=== PATIENT | female | born 1945 | race Caucasian/White ===

== ENCOUNTER → 2016-08-12 | Outpatient (CLI) | payer OTHER, MEDICARE ==
[~2016-08-12] MED LIST: AMOX500C3 PO; AMOX875T PO; ASPI325T45 PO; ASPI81TA28 PO; ATOR80TA PO; BUPRTAB51 PO; CEPH500C PO; CEPH500C2 PO; CHOL1000 PO; CHOL100010 PO; CITA20TA4 PO; CLOP1TAB15 PO; COLL250O; CRG25 PO; CYAN100020 PO; FERR1TAB13 PO; FURO40TA3 PO; FURO80TA63 PO; GLC/500 PO; HYZ/10015 PO; INSDGI SC; INSDGIPEN SC; LOSA100T26 PO; LYR100 PO; MORP1TAB13 PO; MRPSR15 PO; NITR0.2D TD; NRN800 PO; NVLGI SC; NVLGI/PEN SC; OXY/15 PO; PANT40TA PO; PREG1CAP28 PO; RXC5 PO; SNTONWC TOP; SPR25 PO
[2016-08-12 14:59] LABS: BASO % 0.4 %; BASO ABS # 0.04 K/uL (0-0.2); COMPLETE YES; EOS % 1.7 %; HEMATOCRIT 39.7 % (37-47); IG% 0.3 %; LYMPH % 30.2 %; LYMPH ABS # 3.07 K/uL (1.2-3.4); MEAN CELL VOLUME 79.1 fL (80-100); MEAN CORPUSCULAR HEMOGLOBIN 26.9 pg (25-34); MEAN PLATELET VOLUME 10.8 fL (7.4-10.4); MONO % 6.5 %; NEUT % 60.9 %; PLATELET COUNT 352 K/uL (130-400); RED BLOOD COUNT 5.02 M/uL (4.2-5.4); WHITE BLOOD COUNT 10.15 K/uL (4.8-10.8)
[2016-08-12 15:09] LABS: BLOOD UREA NITROGEN 16 mg/dl (7-18); BUN/CREATININE RATIO 18.3 (10-20); CALCIUM 10.3 mg/dl (8.5-10.1); CARBON DIOXIDE 30 mmol/L (21-32); CHLORIDE 96 mmol/L (98-107); CREATININE 0.89 mg/dl (0.60-1.20); GLUCOSE 293 mg/dl (70-99); POTASSIUM 3.9 mmol/L (3.5-5.1); SODIUM 135 mmol/L (136-145)
== END | disposition home or self-care (01) ==
LOC: C.LABSPEC 14:48
PROVIDERS: ATTEND Family Medicine
DX: N23 Unspecified renal colic (principal)

== ENCOUNTER 2017-02-04 11:11 | Emergency (ER) | payer OTHER, MEDICARE ==
[~2017-02-04 11:11] MED LIST changes: -AMOX500C3 PO; -ASPI325T45 PO; -CEPH500C PO; -CEPH500C2 PO; -CHOL1000 PO; -FERR1TAB13 PO; -FURO40TA3 PO; -HYZ/10015 PO; -INSDGIPEN SC; -LYR100 PO; -MORP1TAB13 PO; -NVLGI/PEN SC; -OXY/15 PO
[2017-02-04 11:18] VITALS: TEMP 37; Ht 157.5 cm
[2017-02-04] MEDS ORDERED: SODIUM CHLORIDE 0.9% 1000ML 1,000 ML IV STA (11:33)
[2017-02-04] MEDS ORDERED: MoRPHine SULFATE 4 MG/ML 1 ML CARP\\VIAL IV STA (11:33)
[2017-02-04] MEDS ORDERED: FURO40TA3 PO (11:43)
[2017-02-04] MEDS ORDERED: ASPI325T45 PO (11:43)
[2017-02-04] MEDS ORDERED: HYZ/10015 PO (11:43)
[2017-02-04] MEDS ORDERED: FERR1TAB13 PO (11:43)
[2017-02-04] MEDS ORDERED: NVLGI/PEN SC (11:43)
[2017-02-04] MEDS ORDERED: LYR100 PO (11:43)
[2017-02-04] MEDS ORDERED: INSDGIPEN SC (11:43)
[2017-02-04] MEDS ORDERED: CHOL1000 PO (11:43)
[2017-02-04] MEDS ORDERED: MORP1TAB13 PO (11:43)
[2017-02-04] MEDS ORDERED: OXY/15 PO (11:43)
[2017-02-04 12:32] LABS: URINE APPEARANCE CLEAR (CLEAR); URINE BILIRUBIN NEG (NEG); URINE COLOR YELLOW; URINE NITRITE NEG (NEG); URINE PH 8.5 (4.5-7.5); URINE SPECIFIC GRAVITY 1.016 (1.000-1.030); UROBILINOGEN NEG (NEG)
--- NOTE | 2017-02-04 12:33 | DIAGNOSTIC IMAGING REPORT ---
CHEST ONE VIEW PORTABLE HISTORY: 71 years Female Evaluate Fever/Sepsis COMPARISON: None available TECHNIQUE: Portable AP upright view of the chest FINDINGS: Cardiac silhouette is enlarged. There is mild right hemidiaphragmatic elevation. Lungs are mildly hypoinflated without pneumothorax, pleural effusion or focal airspace consolidation. Technique and body habitus however does mildly limit the study. Degenerative changes are seen throughout the spine. Bones appear grossly intact. IMPRESSION: Right hemidiaphragmatic elevation without acute cardiopulmonary process identified. The exam however is mildly limited secondary to technique and body habitus. The above report was generated using voice recognition software. It may contain grammatical, syntax or spelling errors. Electronically signed by: Carson Spears M.D. 02/04/2017 12:31 PM Dictated Date/Time: 02/04/2017 12:30 PM
[2017-02-04 12:42] LABS: BASO % 0.2 %; BASO ABS # 0.02 K/uL (0-0.2); COMPLETE YES; EOS % 0.7 %; HEMATOCRIT 37.8 % (37-47); IG% 0.2 %; LYMPH % 23.8 %; LYMPH ABS # 2.29 K/uL (1.2-3.4); MEAN CELL VOLUME 77.3 fL (80-100); MEAN CORPUSCULAR HEMOGLOBIN 25.8 pg (25-34); MEAN CORPUSCULAR HGB CONC 33.3 g/dl (32-36); MONO % 7.7 %; NEUT % 67.4 %; PLATELET COUNT 337 K/uL (130-400); RED BLOOD COUNT 4.89 M/uL (4.2-5.4); WHITE BLOOD COUNT 9.62 K/uL (4.8-10.8)
[2017-02-04 12:46] LABS: MANUAL MICROSCOPIC REQUIRED? NO; REVIEW REQ? NO
[2017-02-04 12:58] LABS: PROTHROMBIN TIME (PATIENT) 10.7 SECONDS (9.0-12.0)
--- NOTE | 2017-02-04 13:03 | DIAGNOSTIC IMAGING REPORT ---
CT SCAN OF THE ABDOMEN AND PELVIS WITHOUT CONTRAST CLINICAL HISTORY: Diffuse abdominal pain. COMPARISON STUDY: No previous studies for comparison. TECHNIQUE: CT scan of the abdomen and pelvis was performed from the lung bases to the proximal femurs. Images are reviewed in the axial, sagittal, and coronal planes. IV contrast was not administered for this examination. A dose lowering technique was used consistent with a principles of ALARA CT DOSE: 988.49 mGycm FINDINGS: Lower chest: There are mild basilar atelectatic changes Liver: The unenhanced liver is normal in size, contour, and attenuation. There is no intrahepatic biliary ductal dilatation. Gallbladder: Unremarkable. Spleen: Normal in size and attenuation. Pancreas: There is pancreatic body and tail atrophy. There is slight indistinctness of the pancreatic head. Correlation with appropriate biochemical markers is recommended to exclude pancreatitis. Adrenal glands: Unremarkable. Kidneys: No renal, ureteral, or bladder calculi are visualized. Bowel: There are no transition zones indicate bowel obstruction. There is colonic diverticulosis. There are no acute peridiverticular inflammatory changes present. There is no evidence of acute appendicitis. Peritoneum: There is no intraperitoneal free air or abdominal ascites. Vasculature: The abdominal aorta is normal in course and caliber. There are diffuse atheromatous changes present. Adenopathy: None. Pelvic viscera: The uterus appears surgically absent Skeletal structures: No destructive osseous lesions are seen. IMPRESSION: 1. Study limited secondary to the lack of intravenous and oral contrast 2. No renal, ureteral, or bladder calculi identified 3. Diverticulosis. No evidence of acute diverticulitis 4. No evidence of acute appendicitis 5. Pancreatic atrophy. Indistinctness the pancreatic head. Correlation with appropriate biochemical markers is recommended to exclude pancreatitis Electronically signed by: Brent Funez M.D. 02/04/2017 1:01 PM Dictated Date/Time: 02/04/2017 12:56 PM
[2017-02-04 13:11] LABS: ALT/SGPT 19 U/L (12-78); AST/SGOT 11 U/L (15-37); BLOOD UREA NITROGEN 15 mg/dl (7-18); BUN/CREATININE RATIO 19.6 (10-20); CALCIUM 10.5 mg/dl (8.5-10.1); CARBON DIOXIDE 32 mmol/L (21-32); CHLORIDE 97 mmol/L (98-107); CREATININE 0.77 mg/dl (0.60-1.20); GLUCOSE 183 mg/dl (70-99); POTASSIUM 3.8 mmol/L (3.5-5.1); SODIUM 134 mmol/L (136-145)
[2017-02-04 13:21] LABS: ALKALINE PHOSPHATASE 61 U/L (45-117); CKMB/CK RATIO 2.3 (0-3.0)
--- NOTE | 2017-02-04 13:29 | EMERGENCY ROOM VISIT NOTE ---
History Report prepared by Corina: Samuel Hayes Under the Supervision of: Dr. Javed Michele D.O. First contact with patient: 11:28 Chief Complaint: PAIN (GENERALIZED) Stated Complaint: PAIN ALL OVER History of Present Illness The patient is a 71 year old female who presents to the Emergency Room with complaints of intermittent generalized body pain beginning a week ago. She states that the majority of her pain is in her abdomen and ribs. She has a history of multiple heart attacks and states that her symptoms are usually not typical at the time of diagnosis. The patient states that her pain has been occurring more frequently recently. Nothing worsens her pain. She rates her pain as a 10/10 in severity. The patient has been taking Oxycodone and Morphine at home for pain control but states that they have not helped her symptoms. Source of History: patient Onset: 1 week ago Position: other (generalized) Symptom Intensity: 10/10 Timing: intermittent Modifying Factors (Worsening): other (none) Review of Systems See HPI for pertinent positives & negatives. A total of 10 systems reviewed and were otherwise negative. Past Medical & Surgical Medical Problems: (1) Cellulitis of heel, right (2) Chronic ulcer of right heel (3) Diabetes (4) Neuropathy (5) PAD (peripheral artery disease) Family History Diabetes mellitus Hypertension Social History Smoking Status: Former Smoker Drug Use: none Marital Status: Occupation Status: retired, disabled Current/Historical Medications Scheduled Aspirin (Aspirin), 325 MG PO DAILY Atorvastatin Calcium (Lipitor), 80 MG PO QPM Carvedilol (Carvedilol), 25 MG PO BID Cholecalciferol (Vitamin D3), 1,000 UNITS PO DAILY Citalopram Hydrobromide (Citalopram Hydrobromide), 1 TAB PO DAILY Clopidogrel (Plavix), 75 MG PO DAILY Cyanocobalamin (Vitamin B12), 1 TAB PO DAILY Ferrous Sulfate (Kp Ferrous Sulfate), 325 MG PO BID Furosemide (Lasix), 40 MG PO DAILY Gabapentin (Gabapentin), 800 MG PO BID Hctz/Losartan (Hyzaar 25MG/100MG), 1 TAB PO DAILY Insulin Aspart (Novolog Flexpen), UNITS SC SLIDING SCALE Insulin Glargine (Lantus Solostar), 40 UNITS SC BID Metformin Hcl (Glucophage), 1,000 MG PO BID Morphine Sulfate (Morphine Sulfate Er), 60 MG PO BID Pantoprazole Sodium (Protonix), 40 MG PO HS Pregabalin (Lyrica), 100 MG PO BID Spironolactone (Spironolactone), 25 MG PO DAILY Scheduled PRN Oxycodone Hcl (Oxycodone Hcl), 15 MG PO Q4H PRN for Pain Allergies Coded Allergies: Iodinated Diagnostic Agents (Verified Allergy, Severe, ANAPHYLAXIS, ) Levalbuterol Hydrochloride (Verified Allergy, Severe, ANAPHYLAXIS, 03/12/16 ) NSAIDs (Unverified Allergy, Unknown, unknown, 03/12/16) Alprazolam (Verified Adverse Reaction, Unknown, unknown, 03/12/16) Physical Exam Vital Signs Date Time Temp Pulse Resp B/P (MAP) Pulse Ox O2 Delivery O2 Flow Rate FiO2 02/04/17 13:00 87 15 125/73 94 Room Air 02/04/17 12:59 86 02/04/17 11:18 37.0 92 20 139/83 93 Room Air Physical Exam CONSTITUTIONAL/VITAL SIGNS: Reviewed / noted above. GENERAL: Non-toxic in appearance. INTEGUMENTARY: Warm, dry, and [place]. HEAD: Normocephalic. EYES: without scleral icterus or trauma. ENT/OROPHARYNX: clear and moist. LYMPHADENOPATHY/NECK: Is supple without lymphadenopathy or meningismus. RESPIRATORY: Lungs clear and equal. CARDIOVASCULAR: Regular rate and rhythm. GI/ABDOMEN: Soft with diffuse abdominal tenderness. No organomegaly or pulsatile mass. No rebound or guarding. Normal bowel sounds. EXTREMITIES: Warm and well perfused. BACK: No CVA tenderness. NEUROLOGICAL: Intact without focal deficits. PSYCHIATRIC: normal affect. MUSCULOSKELETAL: Normally developed with good muscle tone. Medical Decision & Procedures ER Provider Diagnostic Interpretation: Radiology results as stated below per my review and radiologist interpretation: CHEST ONE VIEW PORTABLE FINDINGS: Cardiac silhouette is enlarged. There is mild right hemidiaphragmatic elevation. Lungs are mildly hypoinflated without pneumothorax, pleural effusion or focal airspace consolidation. Technique and body habitus however does mildly limit the study. Degenerative changes are seen throughout the spine. Bones appear grossly intact. IMPRESSION: Right hemidiaphragmatic elevation without acute cardiopulmonary process identified. The exam however is mildly limited secondary to technique and body habitus. The above report was generated using voice recognition software. It may contain grammatical, syntax or spelling errors. Electronically signed by: Carson Spears M.D. CT SCAN OF THE ABDOMEN AND PELVIS WITHOUT CONTRAST FINDINGS: Lower chest: There are mild basilar atelectatic changes Liver: The unenhanced liver is normal in size, contour, and attenuation. There is no intrahepatic biliary ductal dilatation. Gallbladder: Unremarkable. Spleen: Normal in size and attenuation. Pancreas: There is pancreatic body and tail atrophy. There is slight indistinctness of the pancreatic head. Correlation with appropriate biochemical markers is recommended to exclude pancreatitis. Adrenal glands: Unremarkable. Kidneys: No renal, ureteral, or bladder calculi are visualized. Bowel: There are no transition zones indicate bowel obstruction. There is colonic diverticulosis. There are no acute peridiverticular inflammatory changes present. There is no evidence of acute appendicitis. Peritoneum: There is no intraperitoneal free air or abdominal ascites. Vasculature: The abdominal aorta is normal in course and caliber. There are diffuse atheromatous changes present. Adenopathy: None. Pelvic viscera: The uterus appears surgically absent Skeletal structures: No destructive osseous lesions are seen. IMPRESSION: 1. Study limited secondary to the lack of intravenous and oral contrast 2. No renal, ureteral, or bladder calculi identified 3. Diverticulosis. No evidence of acute diverticulitis 4. No evidence of acute appendicitis 5. Pancreatic atrophy. Indistinctness the pancreatic head. Correlation with appropriate biochemical markers is recommended to exclude pancreatitis Electronically signed by: Brent Funez M.D. Laboratory Results 02/04/17 12:20 Red Blood Count 4.89, Mean Corpuscular Volume 77.3, Mean Corpuscular Hemoglobin 25.8, Mean Corpuscular Hemoglobin Concent 33.3, Mean Platelet Volume 11.0, Neutrophils (%) (Auto) 67.4, Lymphocytes (%) (Auto) 23.8, Monocytes (%) (Auto) 7.7, Eosinophils (%) (Auto) 0.7, Basophils (%) (Auto) 0.2, Neutrophils # (Auto) 6.48, Lymphocytes # (Auto) 2.29, Monocytes # (Auto) 0.74, Eosinophils # (Auto) 0.07, Basophils # (Auto) 0.02 02/04/17 12:20 Test 02/04/17 12:05 02/04/17 12:20 Urine Color YELLOW Urine Appearance CLEAR (CLEAR) Urine pH 8.5 (4.5-7.5) Urine Specific [place] 1.016 (1.000-1.030) Urine Protein NEG (NEG) Urine Glucose (UA) NEG (NEG) Urine Ketones NEG (NEG) Urine Occult Blood NEG (NEG) Urine Nitrite NEG (NEG) Urine Bilirubin NEG (NEG) Urine Urobilinogen NEG (NEG) Urine Leukocyte Esterase NEG (NEG) White Blood Count 9.62 K/uL (4.8-10.8) Red Blood Count 4.89 M/uL (4.2-5.4) Hemoglobin 12.6 g/dL (12.0-16.0) Hematocrit 37.8 % (37-47) Mean Corpuscular Volume 77.3 fL (80-100) Mean Corpuscular Hemoglobin 25.8 pg (25-34) Mean Corpuscular Hemoglobin Concent 33.3 g/dl (32-36) Platelet Count 337 K/uL (130-400) Mean Platelet Volume 11.0 fL (7.4-10.4) Neutrophils (%) (Auto) 67.4 % Lymphocytes (%) (Auto) 23.8 % Monocytes (%) (Auto) 7.7 % Eosinophils (%) (Auto) 0.7 % Basophils (%) (Auto) 0.2 % Neutrophils # (Auto) 6.48 K/uL (1.4-6.5) Lymphocytes # (Auto) 2.29 K/uL (1.2-3.4) Monocytes # (Auto) 0.74 K/uL (0.11-0.59) Eosinophils # (Auto) 0.07 K/uL (0-0.5) Basophils # (Auto) 0.02 K/uL (0-0.2) RDW Standard Deviation 39.8 fL (36.4-46.3) RDW Coefficient of Variation 13.9 % (11.5-14.5) Immature Granulocyte % (Auto) 0.2 % Immature Granulocyte # (Auto) 0.02 K/uL (0.00-0.02) Prothrombin Time 10.7 SECONDS (9.0-12.0) Prothromb Time International Ratio 1.0 (0.9-1.1) Activated Partial Thromboplast Time 26.6 SECONDS (21.0-31.0) Partial Thromboplastin Ratio 1.0 Anion Gap 5.0 mmol/L (3-11) Estimated GFR () 90.7 Estimated GFR (Non- 78.2 BUN/Creatinine Ratio 19.6 (10-20) Calcium Level 10.5 mg/dl (8.5-10.1) Total Bilirubin 0.3 mg/dl (0.2-1) Direct Bilirubin 0.1 mg/dl (0-0.2) Aspartate Amino Transf (AST/SGOT) 11 U/L (15-37) Alanine Aminotransferase (ALT/SGPT) 19 U/L (12-78) Alkaline Phosphatase 61 U/L (45-117) Total Creatine Kinase 78 U/L (26-192) Creatine Kinase MB 1.8 ng/ml (0.5-3.6) Creatine Kinase MB Ratio 2.3 (0-3.0) Troponin I < 0.015 ng/ml (0-0.045) Total Protein 7.5 gm/dl (6.4-8.2) Albumin 3.3 gm/dl (3.4-5.0) Lipase 118 U/L (73-393) Thyroid Stimulating Hormone (TSH) 3.160 uIu/ml (0.300-4.500) Laboratory results as stated above per my review. Medications Administered Medications (Trade) Dose Ordered Sig/Margaret Route Start Time Stop Time Status Last Admin Dose Admin Morphine Sulfate (MoRPHine SULFATE INJ) 4 mg NOW STAT IV 02/04/17 11:33 02/04/17 11:35 DC 02/04/17 12:22 4 MG Sodium Chloride 1,000 ml @ 999 mls/hr Q1H1M STAT IV 02/04/17 11:33 02/04/17 12:33 DC 02/04/17 12:22 999 MLS/HR ECG Indication: abdominal pain Rate (beats per minute): 89 Rhythm: normal sinus Findings: RBBB, no acute ischemic change, no ectopy Comparison ECG Date: Jul 25, 2015 Change: no significant change ED Course 1130: Previous medical records were reviewed. The patient was evaluated in room B3B. A complete history and physical examination was performed. 1133: Ordered Sodium Chloride 1000 ml @ 999 mls/hr IV, Morphine Sulfate 4 mg IV. 1330: On reevaluation, the patient is resting comfortably. I discussed the results and findings with the patient. She verbalized agreement of the treatment plan. She was discharged home. Medical Decision Differential diagnosis: Etiologies such as appendicitis, diverticulitis, PUD, biliary pathology, UTI, pancreatitis, obstruction, mesenteric ischemia, aortic pathology, infections, inflammatory bowel disease, renal colic, as well as others were entertained. This is a 71-year-old female who presents to the ED with a chief complaint of pain in her chest and abdomen. She reports diffuse abdominal pain as well as diffuse thorax pain that has been off and on for the past week and worsening or becoming more steady. Her vital signs are normal. Physical exam did not reveal any significant abnormalities other than some mild diffuse abdominal tenderness. Twelve-lead EKG reveals a normal sinus rhythm with right bundle branch block. No cerumen change from previous. CBC is normal. Glucose was 183. Urine did not show infection. A CT scan of the abdomen and pelvis as well as a chest x-ray did not show acute process. Lipase is normal, LFTs were normal, troponin is negative. TSH was normal. The patient was told results the test. He is felt to be stable for discharge and outpatient follow-up. The patient was treated with IV morphine as well as IV fluids during her ED stay. Medication Reconcilliation Current Medication List: was personally reviewed by me Blood Pressure Screening Patient's blood pressure: Elevated blood pressure Blood pressure disposition: Elevated BP felt to be situational Impression Primary Impression: Abdominal pain Additional Impression: Chest wall pain Scribe Attestation The scribe's documentation has been prepared under my direction and personally reviewed by me in its entirety. I confirm that the note above accurately reflects all work, treatment, procedures, and medical decision making performed by me. Departure Information Dispostion Home / Self-Care Referrals Brittney Narayan DO (PCP) Patient Instructions My [facility] Additional Instructions The cause of your symptoms were no discovered during you ED visit. Follow-up with your doctor for further care and evaluation in 1-2 days. Return to the emergency department for worsening or new symptoms or any concerns. You have been examined and treated today on an emergency basis only. This is not a substitute for, or an effort to provide, complete comprehensive medical care. It is impossible to recognize and treat all injuries or illnesses in a single emergency department visit. It is therefore important that you follow up closely with your doctor. Call as soon as possible for an appointment. Problem Qualifiers
[2017-02-04 14:23] VITALS: BP 121/69; PULSE 86; O2SAT 91
[2017-02-10] MEDS ORDERED: CEPH500C PO (15:28)
[2017-04-07] MEDS ORDERED: CEPH500C2 PO (15:36)
== END 2017-02-04 14:24 | disposition home or self-care (01) ==
LOC: C.EDB 11:13
DX: R10.9 Unspecified abdominal pain (principal); R07.89 Other chest pain; I25.2 Old myocardial infarction; Z79.899 Other long term (current) drug therapy; E11.43 Type 2 diabetes mellitus with diabetic autonomic (poly)neuropathy; I73.9 Peripheral vascular disease, unspecified; Z83.3 Family history of diabetes mellitus; Z82.49 Family history of ischemic heart disease and other diseases of the circulatory system; Z87.891 Personal history of nicotine dependence; Z79.82 Long term (current) use of aspirin; Z79.01 Long term (current) use of anticoagulants; Z79.4 Long term (current) use of insulin

== ENCOUNTER → 2017-02-10 | Outpatient (CLI) | payer OTHER, MEDICARE ==
[~2017-02-10] MED LIST changes: -AMOX875T PO; +ASPI325T45 PO; -ASPI81TA28 PO; -BUPRTAB51 PO; +CEPH500C PO; +CEPH500C2 PO; +CHOL1000 PO; -CHOL100010 PO; -COLL250O; +FERR1TAB13 PO; +FURO40TA3 PO; -FURO80TA63 PO; +HYZ/10015 PO; -INSDGI SC; +INSDGIPEN SC; -LOSA100T26 PO; +LYR100 PO; +MORP1TAB13 PO; -MRPSR15 PO; -NITR0.2D TD; -NVLGI SC; +NVLGI/PEN SC; +OXY/15 PO; -PREG1CAP28 PO; -RXC5 PO; -SNTONWC TOP
--- NOTE | 2017-02-10 16:42 | DIAGNOSTIC IMAGING REPORT ---
RIGHT LOWER EXTREMITY WITHOUT CLINICAL HISTORY: 71 years-old Female presenting with R LEG REST PAIN, HX OF STENT, OPEN WOUND R HEEL. TECHNIQUE: Multidetector CT of the right foot was performed without the use of intravenous contrast. IV contrast: None. A dose lowering technique was used consistent with the principles of ALARA (as low as reasonably achievable). COMPARISON: None. CT DOSE (mGy.cm): The estimated cumulative dose is 272.68 mGy.cm. FINDINGS: Advertising Inserter topogram: Unremarkable. Diffuse subcutaneous edema. Skin thickening most pronounced along the dorsum of the foot. An open wound is noted at the heel, which does not extend all the way to the subjacent calcaneus. Subjacent to this no significant osteolysis or erosive change allowing for the severe degree of osteopenia. No focal fluid collection. Degenerative changes and osteopenia noted diffusely. Degenerative changes at the calcaneus at the level of the insertion of the Achilles tendon and plantar fascia. No malalignment. Evaluation for fracture limited due to osteopenia. Fatty atrophy of the muscles of the foot diffusely, which is most apparent in the flexor compartment. Atherosclerosis. IMPRESSION: 1. Open wound at the right heel without CT evidence of osteomyelitis allowing for the severe degree of osteopenia. No soft tissue fluid collection to suggest abscess. If there is continuing clinical concern for osteomyelitis, MRI may better characterize bony changes given such severe osteopenia. Electronically signed by: Keagan Schneider M.D. 02/10/2017 4:41 PM Dictated Date/Time: 02/10/2017 4:30 PM
--- NOTE | 2017-02-10 16:43 | DIAGNOSTIC IMAGING REPORT ---
ULTRASOUND RIGHT LOWER EXTREMITY ARTERIAL CLINICAL HISTORY: Right leg pain. History of stent. Open wound in the right lower extremity. COMPARISON STUDY: No priors. TECHNIQUE: Real-time, grayscale, and color Doppler sonography of the arteries of the right lower extremity is performed from the inguinal crease to the foot. The patient declined ankle-brachial index assessment. The examination is degraded by large body habitus. FINDINGS: There is atherosclerotic plaque and irregularity seen throughout the arteries of the right lower extremity. There are triphasic waveforms in the right common femoral artery with velocities measuring up to 98 cm/s. The profunda femoris artery is patent with velocities measuring up to 79 cm/s. There are biphasic waveforms seen throughout the superficial femoral artery. Velocities proximally measure up to 92 cm/s, velocities in the midportion measure up to 97 cm/s, and velocities distally measure up to 64 cm/s. There are monophasic to biphasic waveforms seen within the popliteal artery. There is diminished flow suggested, and velocities in the popliteal artery measure up to 34 cm/s. There is three-vessel runoff to the foot. There is diminished flow with monophasic waveforms seen in the calf vessels. Velocities in the posterior tibial artery measure up to 41 cm/s, velocities in the peroneal artery measure up to 33 cm/s, and velocities in the anterior tibial artery measure up to 47 cm/s. The dorsalis pedis artery is patent with monophasic waveforms. Velocities in the dorsalis pedis artery measure up to 21 cm/s. IMPRESSION: 1. Atherosclerotic plaque with evidence of peripheral vascular disease as above. 2. No focal vessel cut off or high-grade stenosis is identified. 3. The patient's reported stent was not visualized. 4. The patient declined ankle-brachial index assessment. Dictated: 02/10/2017 4:15 PM Transcribed: 02/10/2017 4:43 PM [place] Electronically signed by: Augusto Goldstein M.D. 02/10/2017 4:43 PM Dictated Date/Time: 02/10/2017 4:15 PM
== END | disposition home or self-care (01) ==
LOC: C.ULTR 14:41
PROVIDERS: ATTEND Emergency Medicine
DX: M79.604 Pain in right leg (principal); S91.301A Unspecified open wound, right foot, initial encounter; X58.XXXA Exposure to other specified factors, initial encounter; M85.861 Other specified disorders of bone density and structure, right lower leg; M85.872 Other specified disorders of bone density and structure, left ankle and foot; I70.221 Atherosclerosis of native arteries of extremities with rest pain, right leg

== ENCOUNTER → 2017-03-18 | Outpatient (CLI) | payer OTHER, MEDICARE ==
[2017-03-18 16:37] LABS: BASO % 0.2 %; BASO ABS # 0.02 K/uL (0-0.2); COMPLETE YES; EOS % 0.4 %; HEMATOCRIT 37.5 % (37-47); IG% 0.4 %; LYMPH % 18.2 %; LYMPH ABS # 1.74 K/uL (1.2-3.4); MEAN CELL VOLUME 77.3 fL (80-100); MEAN CORPUSCULAR HEMOGLOBIN 26.6 pg (25-34); MEAN CORPUSCULAR HGB CONC 34.4 g/dl (32-36); MEAN PLATELET VOLUME 10.5 fL (7.4-10.4); MONO % 5.3 %; NEUT % 75.5 %; PLATELET COUNT 360 K/uL (130-400); RED BLOOD COUNT 4.85 M/uL (4.2-5.4); WHITE BLOOD COUNT 9.54 K/uL (4.8-10.8)
[2017-03-18 17:05] LABS: ALT/SGPT 23 U/L (12-78); AMYLASE 18 U/L (25-115); BLOOD UREA NITROGEN 12 mg/dl (7-18); BUN/CREATININE RATIO 17.5 (10-20); CALCIUM 9.7 mg/dl (8.5-10.1); CARBON DIOXIDE 31 mmol/L (21-32); CHLORIDE 91 mmol/L (98-107); CREATININE 0.67 mg/dl (0.60-1.20); GLUCOSE 225 mg/dl (70-99); POTASSIUM 3.8 mmol/L (3.5-5.1); SODIUM 131 mmol/L (136-145)
[2017-03-18 17:07] LABS: ALB/GLOB RATIO 0.8 (0.9-2); ALKALINE PHOSPHATASE 66 U/L (45-117); AST/SGOT 14 U/L (15-37)
[2017-03-19 07:29] LABS: ESTIMATED AVERAGE GLUCOSE 263 mg/dl; HA1C FLAG Normal (Normal)
== END | disposition home or self-care (01) ==
LOC: C.LAB1850 15:34
PROVIDERS: ATTEND Registered Nurse
DX: R10.84 Generalized abdominal pain (principal); E11.65 Type 2 diabetes mellitus with hyperglycemia

== ENCOUNTER 2017-05-18 15:08 | Emergency (ER) | payer OTHER, MEDICARE ==
[~2017-05-18] VITALS: Ht 154.9 cm; Wt 115.0 kg
[2017-05-18] MEDS ORDERED: ONDANSETRON INJ 2 MG/ML 2 ML VIAL IV STA (15:26)
--- NOTE | 2017-05-18 15:45 | EMERGENCY ROOM VISIT NOTE ---
History Report prepared by Corina: Renzo Martinez Under the Supervision of: Dr. Shawn Hendrix D.O. First contact with patient: 15:18 Stated Complaint: TOOK TO MUCH INSULIN History of Present Illness The patient is a 72 year old female who presents to the Emergency Room after taking too much insulin this morning around 0710. She states that she usually takes 40 units of Lantus and she thinks that she took 80 units this morning. The patient states that her blood sugar dropped more than usual, and she states that she started to feel off around 1300. She states that she is nauseous, sluggish, and she feels shaky. The patient denies any chest pain, abdominal pain , and shortness of breath. She additionally notes that she drank three cans of soda, and afterwards she was having these symptoms. The patient states that she is on Plavix for a blockage in her heart, and she has had surgery on her left eye in the past. Source of History: patient Onset: 0710 this morning Position: other (global) Quality: other (too much insulin) Associated Symptoms: + nausea Note: Associated symptoms: Sluggish and shaky Review of Systems See HPI for pertinent positives & negatives. A total of 10 systems reviewed and were otherwise negative. Past Medical & Surgical Medical Problems: (1) Cellulitis of heel, right (2) Chronic ulcer of right heel (3) Diabetes (4) Neuropathy (5) PAD (peripheral artery disease) Family History Diabetes mellitus Hypertension Social History Smoking Status: Former Smoker Drug Use: none Marital Status: Occupation Status: retired, disabled Current/Historical Medications Scheduled Aspirin (Aspirin), 325 MG PO DAILY Atorvastatin Calcium (Lipitor), 80 MG PO QPM Carvedilol (Carvedilol), 25 MG PO BID Cephalexin Monohydrate (Keflex), 500 MG PO TID Cephalexin Monohydrate (Keflex), 500 MG PO TID Cholecalciferol (Vitamin D3), 1,000 UNITS PO DAILY Citalopram Hydrobromide (Citalopram Hydrobromide), 1 TAB PO DAILY Clopidogrel (Plavix), 75 MG PO DAILY Cyanocobalamin (Vitamin B12), 1 TAB PO DAILY Ferrous Sulfate (Kp Ferrous Sulfate), 325 MG PO BID Furosemide (Lasix), 40 MG PO DAILY Gabapentin (Gabapentin), 800 MG PO BID Hctz/Losartan (Hyzaar 25MG/100MG), 1 TAB PO DAILY Insulin Aspart (Novolog Flexpen), UNITS SC SLIDING SCALE Insulin Glargine (Lantus Solostar), 40 UNITS SC BID Metformin Hcl (Glucophage), 1,000 MG PO BID Morphine Sulfate (Morphine Sulfate Er), 60 MG PO BID Pantoprazole Sodium (Protonix), 40 MG PO HS Pregabalin (Lyrica), 100 MG PO BID Spironolactone (Spironolactone), 25 MG PO DAILY Scheduled PRN Oxycodone Hcl (Oxycodone Hcl), 15 MG PO Q4H PRN for Pain Allergies Coded Allergies: Iodinated Diagnostic Agents (Verified Allergy, Severe, ANAPHYLAXIS, ) Levalbuterol Hydrochloride (Verified Allergy, Severe, ANAPHYLAXIS, ) NSAIDs (Unverified Allergy, Unknown, unknown, 05/18/17) Alprazolam (Verified Adverse Reaction, Unknown, unknown, 05/18/17) Physical Exam Vital Signs Date Time Temp Pulse Resp B/P (MAP) Pulse Ox O2 Delivery O2 Flow Rate FiO2 05/18/17 18:01 68 20 135/78 96 05/18/17 17:59 68 20 138/88 96 Room Air 05/18/17 15:52 37.0 76 20 136/88 94 Room Air Physical Exam GENERAL: Patient is awake, alert, and in no acute distress. Patient is resting comfortably and showing no signs of anxiety EYES: The pupils are equal, round, and reactive to light. Surgical changes noted to the left lateral eye lid. EARS, NOSE, MOUTH AND THROAT: The nose is without any evidence of any deformity. Mucous membranes are moist tongue is midline NECK: The neck is nontender and supple. RESPIRATORY: Normal respiratory effort is noted there is no evidence of wheezing rhonchi or rales CARDIOVASCULAR: Regular rate and rhythm noted there no murmurs rubs or gallops normal S1 normal S2 GASTROINTESTINAL: The abdomen is soft. Bowel sounds are present in all quadrants. Abdomen is nontender MUSCULOSKELETAL/EXTREMITIES: There is no evidence of gross deformity full range of motion is noted in the hips and shoulders SKIN: Pedal edema bilaterally. There is no obvious evidence of any rash. There are no petechiae, pallor or cyanosis noted. NEUROLOGIC: Patient is awake alert and oriented x3 strength is symmetric. No facial droop appreciated. Medical Decision & Procedures ER Provider Diagnostic Interpretation: Radiology results as stated below per my review and radiologist interpretation: CHEST ONE VIEW PORTABLE CLINICAL HISTORY: EVALUATE ALTERED MENTAL STATUS/WEAKNESS dyspnea COMPARISON STUDY: 02/04/2017 FINDINGS: Chronic elevation right hemidiaphragm. Lungs are clear. No evidence for cardiac enlargement. IMPRESSION: No acute process. The above report was generated using voice recognition software. It may contain grammatical, syntax or spelling errors. Electronically signed by: Troy Lan M.D. 05/18/2017 3:54 PM Dictated Date/Time: 05/18/2017 3:53 PM Laboratory Results Test 05/18/17 17:49 Bedside Glucose 263 mg/dl (70-90) ED Course 1518: The patient was evaluated in room A11. A complete history and physical examination were performed. 1743: Upon reevaluation, the patient is doing well. I discussed the results and treatment plan with her. She verbalized agreement of the treatment plan. She was discharged home. Medical Decision Differential diagnosis: Etiologies such as metabolic, infection, hypo/hyperglycemia, electrolyte abnormalities, cardiac sources, intracerebral event, toxicologic, neurologic, as well as others were entertained. Nursing notes reviewed. Additional history is obtained from the patient's family members. The patient is a 72-year-old female who presented to the emergency department for possible hypoglycemia weakness and nausea. The patient is a history of diabetes and feels as though she may have taken too much of her insulin this morning. The patient was not hypoglycemic but yet still in symptoms. For this reason a workup was undertaken to ensure this was not a a cardiac or neurologic cause for her symptoms. The patient did not wish to have any decreased test done. She was kept in the emergency department and given food and on reevaluation was feeling somewhat improved. This reason I agreed that no further testing would be needed but I did explain to her that I felt she would require further evaluation especially if symptoms return or if the need arises. Otherwise she was encouraged to follow-up with her family doctor. Medication Reconcilliation Current Medication List: was personally reviewed by me Blood Pressure Screening Patient's blood pressure: Normal blood pressure Impression Primary Impression: Hypoglycemia Scribe Attestation The scribe's documentation has been prepared under my direction and personally reviewed by me in its entirety. I confirm that the note above accurately reflects all work, treatment, procedures, and medical decision making performed by me. Departure Information Dispostion Home / Self-Care Referrals Chary Dey M.D. (PCP) Forms HOME CARE DOCUMENTATION FORM, IMPORTANT VISIT INFORMATION, WORK / SCHOOL INSTRUCTIONS Patient Instructions Hypoglycemia, My [facility] Additional Instructions Continue all medications only as prescribed. Continue to check her blood sugar throughout the evening. Restart your normal dose of insulin tomorrow morning. Return to the emergency department immediately if symptoms change worsen or the need arises.
[2017-05-18 15:52] VITALS: TEMP 37; Ht 154.9 cm; Wt 115.0 kg
--- NOTE | 2017-05-18 15:55 | DIAGNOSTIC IMAGING REPORT ---
CHEST ONE VIEW PORTABLE CLINICAL HISTORY: EVALUATE ALTERED MENTAL STATUS/WEAKNESS dyspnea COMPARISON STUDY: 02/04/2017 FINDINGS: Chronic elevation right hemidiaphragm. Lungs are clear. No evidence for cardiac enlargement. IMPRESSION: No acute process. The above report was generated using voice recognition software. It may contain grammatical, syntax or spelling errors. Electronically signed by: Troy Lan M.D. 05/18/2017 3:54 PM Dictated Date/Time: 05/18/2017 3:53 PM
[2017-05-18 18:01] VITALS: BP 135/78; PULSE 68; O2SAT 96
== END 2017-05-18 18:02 | disposition home or self-care (01) ==
LOC: EDBD 15:08 → C.EDA 15:09
DX: E16.2 Hypoglycemia, unspecified (principal); E11.9 Type 2 diabetes mellitus without complications; I73.9 Peripheral vascular disease, unspecified; G62.9 Polyneuropathy, unspecified; Z83.3 Family history of diabetes mellitus; Z82.49 Family history of ischemic heart disease and other diseases of the circulatory system; Z87.891 Personal history of nicotine dependence; Z79.82 Long term (current) use of aspirin; Z79.4 Long term (current) use of insulin

== ENCOUNTER → 2017-09-14 | Day surgery (SDC) | payer OTHER, MEDICARE ==
[2017-08-11 15:34] VITALS: Ht 154.9 cm; Wt 118.2 kg
[~2017-09-14] VITALS: Ht 154.9 cm; Wt 118.2 kg
[~2017-09-14] MED LIST changes: +500ML BSS 0.3ML EPI 1:1000PF IRRIG ONE; +ACETAMINOPHEN 325 MG TAB PO PRN; +AMVISC PLUS 0.8ML SYRINGE INT OCU ONE; +ASPCH81X PO; -ASPI325T45 PO; +ATROPINE SULFATE 0.1 MG/ML 5ML SYR IV PRN; +BRIMONIDINE TART 0.2% OP SOLN PER DROP CHARGE ONE; +BSS FLUSH ONE; -CEPH500C2 PO; -CITA20TA4 PO; +ENDOCOAT 0.85ML SYRINGE INT OCU ONE; +EpINEphrine INJ 1MG/ML AMP 1 MG/ML AMP ONE; +FENTANYL CITRATE INJ 50 MCG/1 ML 2 ML VIAL ONE; +FRS/40 PO; -FURO40TA3 PO; +GABA800T PO; +INSU100I SC; +KETOROLAC 0.5% OP SOLN PER DROP CHARGE OPL SCH; +LACTATED RINGER'S 1000ML 500 ML IV SCH; +LIDO 2%/EPINEPHRINE 1:100000 20 ML VIAL INFIL ONE; +LIDOCAINE 4% OP SOLN DROP CHARGE ONE; +LIDOCAINE 4% OP SOLN DROP CHARGE OPL SCH; +LIDOCAINE HCL 1% MPF 2 ML VIAL ONE; +MIDAZOLAM HCL 1 MG/ML 2ML VIAL ONE; +MIX: 3ML BSS AND 1ML EPI(PF) TOP ONE; +MOXIFLOXACIN OPH SOLN PER DROP CHARGE ONE; -NRN800 PO; +NURSING VERBAL MED ORDER ONE; -NVLGI/PEN SC; +NovoLIN-R INSULIN PER UNIT CHARGE ONE; +ONDANSETRON INJ 2 MG/ML 2 ML VIAL IV PRN; +POVIDONE-IODINE OP SOLN 30 ML BTL ONE; +PROPARACAINE 0.5% OP SOLN PER DROP CHARGE OPL SCH; +TOBRAMYCIN/DEXAMETHASONE OPH OINT PER APPLN CHARGE ONE; +[UNRECOGNIZED DRUG - REMARK] SCH
--- NOTE | 2017-09-14 11:13 | History & Physical Bridge - [place] ---
H&P Re-Evaluation Bridge Note: I have examined the patient, reviewed the History & Physical and in the interval since the performance of the History & Physical I have noted the following changes of clinical significance: No changes noted
[2017-09-14] MEDS: PHENYLEPHRINE HCL 2.5% OP SOLN PER DROP CHARGE OPL SCH ×2 (11:26→11:31)
[2017-09-14] MEDS: TROPICAMIDE 1% OP SOLN PER DROP CHARGE OPL SCH ×2 (11:27→11:32)
[2017-09-14] MEDS: CYCLOPENTOLATE HCL 1% OP SOLN PER DROP CHARGE OPL SCH ×2 (11:28→11:33)
[2017-09-14] MEDS: MOXIFLOXACIN OPH SOLN PER DROP CHARGE OPL SCH ×2 (11:29→11:39)
--- NOTE | 2017-09-14 12:24 | [facility] Operative Report ---
Operative Report Operative Date Sep 14, 2017. Pre-Operative Diagnosis Cataract left eye Post-Operative Diagnosis same Procedure(s) Performed Left Cataract Phacoemulsification With Intraocular Lens Implant Surgeon Dr. Gaston Valving Machine Operator Surgeon(s) none Estimated Blood Loss 0ml Findings cataract left eye Fluids see anesthesia record Specimens none Drains None Anesthesia Type MAC Complication(s) none Disposition no Recovery Room / PACU Indications decreased vision left eye Description of Procedure After informed consent was obtained in the holding area the patient was wheeled back to the operating room where cardiac monitoring leads and oxygen by nasal cannula was administered by Anesthesia. Gentle IV sedation was given, and the patient's left eye was prepped and draped in usual sterile fashion. A wire lid speculum was placed into the left eye and the operating microscope was swung into position. Using 0.12 forceps and a Supersharp blade a paracentesis port was made 2 o'clock hours away from the 3 o'clock position of the patient's left eye. 1% non-preserved Lidocaine was then injected into the anterior chamber for anesthesia. A 2.0 mm keratotome blade was then used to make a shelved clear corneal incision at the 3 o'clock position of the left eye. Amvisc was injected into the anterior chamber and a cystotome and Utrata forceps were used to perform a curvilinear capsulorrhexis. BSS on a hydrodissection cannula was used to hydrodissect the lens nucleus away from the capsular bag. The phacoemulsification handpiece was then used in a stop and chop fashion to remove the lens nucleus. The irrigation and aspiration handpiece was then used to remove the residual cortical material. Amvisc was injected into the capsular bag and anterior chamber and a [employer]ch [employer] Lomb MX60 17.5 Diopter intraocular lens was injected into the capsular bag. Irrigation and aspiration handpiece was used to remove the residual viscoelastic material. The wounds were hydrated and noted to be watertight. The wire lid speculum was removed from the eye. Vigamox, Brimonidine, and TobraDex ointment were placed on the eye and it was shielded. It should be noted that EndoCoat was used extensively during the case to protect the cornea endothelium. DISPOSITION: The patient tolerated the procedure well and was wheeled to the post anesthesia care unit in stable condition. I attest to the content of the Intraoperative Record and any orders documented therein. Any exceptions are noted below. I attest to the content of the Intraoperative Record and any orders documented therein. Any exceptions are noted below.
[2017-09-14 12:26] VITALS: TEMP 36.8
--- NOTE | 2017-09-14 12:26 | Discharge Instructions-SurgCtr ---
Discharge Instructions Date of Service Sep 14, 2017. Visit Reason for Visit: Cataract Left Eye Discharge Discharge Diagnosis / Problem: catarct left eye Discharge Goals Goal(s): Improve function Medications Stopped Medications Name(s): Patient only took necessary medications this morning. Activity Recommendations Activity Limitations: per Instructions/Follow-up section Lifting Limitations: no more than 5 pounds Anesthesia . Post Anesthesia Instructions: If you have had General Anesthesia or IV Sedation: * Do not drive today. * Resume driving when surgeon permits. * Do not make important decisions or sign legal documents today. * Call surgeon for: 1. Temperature elevations greater than 101 degrees F. 2. Uncontrollable pain. 3. Excessive bleeding. 4. Persistent nausea and vomiting. 5. Medication intolerance (nausea, vomiting or rash). * For nausea and vomiting use only clear liquids such as: tea, soda, bouillon until nausea subsides, then gradually increase diet as tolerated. * If you have any concerns or questions, call your surgeon's office. If physician is unavailable and it is an emergency, call 911 or go to the nearest emergency room. . Instructions / Follow-Up Instructions / Follow-Up ACTIVITY RECOMMENDATIONS: * Light activities * You may walk outside, read, watch television. * Mild irritation and blurred vision are common for the first few days, redness around the white part of the eye is common. MEDICATIONS: Resume previous medications unless instructed otherwise by your surgeon. Eye drops (today and tomorrow): Polytrim - one drop in operative eye every 2 hours while awake Prednisolone 1% - one drop in operative eye every 2 hours while awake SPECIAL CARE INSTRUCTIONS: * If any problems or concerns, please call Dr. Gaston's office at . * Keep plastic shield taped over eye to sleep at night. * Keep plastic shield taped over eye except to administer eye drops. * Keep plastic shield on until office visit the following day. FOLLOW UP VISIT: Follow-up with Dr. Gaston in the [place] office as scheduled. If not already scheduled, please call the office at . Diet Recommendations Home Diet: resume previous diet Procedures Procedures Performed: Left Cataract Phacoemulsification With Intraocular Lens Implant Pending Studies Studies pending at discharge: no Medical Emergencies . Who to Call and When: Medical Emergencies: If at any time you feel your situation is an emergency, please call 911 immediately. . Non-Emergent Contact Non-Emergency issues call your: [employer] . . "Provider Documentation" section prepared by Kelvin Gaston. .
--- NOTE | 2017-09-14 12:36 | Anesthesia Progress Nt - [facility] ---
Anesthesia Post Op Note Date & Time Sep 14, 2017 at 12:35 Vital Signs Pain Intensity: 4 Vital Signs Past 12 Hours Date Time Temp Pulse Resp B/P (MAP) Pulse Ox O2 Delivery O2 Flow Rate FiO2 09/14/17 12:26 36.8 73 16 135/77 (96) 92 Room Air 09/14/17 10:43 36.6 80 24 184/97 (126) 94 Room Air Notes Mental Status: alert / awake / arousable, participated in evaluation Pt Amnestic to Procedure: Yes Nausea / Vomiting: adequately controlled Pain: adequately controlled Airway Patency, RR, SpO2: stable & adequate BP & HR: stable & adequate Hydration State: stable & adequate Anesthetic Complications: no major complications apparent
[2017-09-14 12:51] VITALS: BP 128/75; PULSE 74; O2SAT 94
== END | disposition home or self-care (01) ==
LOC: X.SURG 10:17
PROVIDERS: ATTEND Ophthalmology
DX: H25.11 Age-related nuclear cataract, right eye (principal); E11.9 Type 2 diabetes mellitus without complications; I10 Essential (primary) hypertension; I50.9 Heart failure, unspecified; E78.00 Pure hypercholesterolemia, unspecified; I73.9 Peripheral vascular disease, unspecified; F41.9 Anxiety disorder, unspecified; I48.91 Unspecified atrial fibrillation; F32.9 Major depressive disorder, single episode, unspecified; K21.9 Gastro-esophageal reflux disease without esophagitis; I25.10 Atherosclerotic heart disease of native coronary artery without angina pectoris; I25.2 Old myocardial infarction; Z91.041 Radiographic dye allergy status; Z88.6 Allergy status to analgesic agent; Z88.8 Allergy status to other drugs, medicaments and biological substances; Z79.82 Long term (current) use of aspirin; Z79.02 Long term (current) use of antithrombotics/antiplatelets; Z79.84 Long term (current) use of oral hypoglycemic drugs; Z79.4 Long term (current) use of insulin; Z87.891 Personal history of nicotine dependence; Z83.511 Family history of glaucoma; Z83.3 Family history of diabetes mellitus; Z95.818 Presence of other cardiac implants and grafts

== ENCOUNTER → 2017-09-30 | Outpatient (CLI) | payer OTHER, MEDICARE ==
[~2017-09-30] MED LIST changes: -500ML BSS 0.3ML EPI 1:1000PF IRRIG ONE; -ACETAMINOPHEN 325 MG TAB PO PRN; -AMVISC PLUS 0.8ML SYRINGE INT OCU ONE; -ATROPINE SULFATE 0.1 MG/ML 5ML SYR IV PRN; -BRIMONIDINE TART 0.2% OP SOLN PER DROP CHARGE ONE; -BSS FLUSH ONE; -ENDOCOAT 0.85ML SYRINGE INT OCU ONE; -EpINEphrine INJ 1MG/ML AMP 1 MG/ML AMP ONE; -FENTANYL CITRATE INJ 50 MCG/1 ML 2 ML VIAL ONE; -KETOROLAC 0.5% OP SOLN PER DROP CHARGE OPL SCH; -LACTATED RINGER'S 1000ML 500 ML IV SCH; -LIDO 2%/EPINEPHRINE 1:100000 20 ML VIAL INFIL ONE; -LIDOCAINE 4% OP SOLN DROP CHARGE ONE; -LIDOCAINE 4% OP SOLN DROP CHARGE OPL SCH; -LIDOCAINE HCL 1% MPF 2 ML VIAL ONE; -MIDAZOLAM HCL 1 MG/ML 2ML VIAL ONE; -MIX: 3ML BSS AND 1ML EPI(PF) TOP ONE; -MOXIFLOXACIN OPH SOLN PER DROP CHARGE ONE; -NURSING VERBAL MED ORDER ONE; -NovoLIN-R INSULIN PER UNIT CHARGE ONE; -ONDANSETRON INJ 2 MG/ML 2 ML VIAL IV PRN; -POVIDONE-IODINE OP SOLN 30 ML BTL ONE; -PROPARACAINE 0.5% OP SOLN PER DROP CHARGE OPL SCH; -TOBRAMYCIN/DEXAMETHASONE OPH OINT PER APPLN CHARGE ONE; -[UNRECOGNIZED DRUG - REMARK] SCH
[2017-09-30 15:01] LABS: ALBUMIN 3.2 gm/dl (3.4-5.0); ALT/SGPT 23 U/L (12-78); AST/SGOT 15 U/L (15-37); BLOOD UREA NITROGEN 18 mg/dl (7-18); CALCIUM 9.7 mg/dl (8.5-10.1); CARBON DIOXIDE 30 mmol/L (21-32); CHOLESTEROL 72 mg/dl (0-200); CREATININE 0.89 mg/dl (0.60-1.20); GLUCOSE 275 mg/dl (70-99); POTASSIUM 3.7 mmol/L (3.5-5.1); SODIUM 133 mmol/L (136-145)
[2017-09-30 15:03] LABS: BASO % 0.2 %; BASO ABS # 0.02 K/uL (0-0.2); EOS % 2.1 %; HEMATOCRIT 40.6 % (37-47); HEMOGLOBIN 13.6 g/dL (12.0-16.0); IG# 0.02 K/uL (0.00-0.02); LYMPH % 33.1 %; LYMPH ABS # 3.11 K/uL (1.2-3.4); MEAN CELL VOLUME 79.8 fL (80-100); MEAN CORPUSCULAR HEMOGLOBIN 26.7 pg (25-34); MEAN CORPUSCULAR HGB CONC 33.5 g/dl (32-36); MEAN PLATELET VOLUME 11.4 fL (7.4-10.4); MONO % 6.2 %; MONO ABS # 0.58 K/uL (0.11-0.59); NEUT % 58.2 %; NEUT ABS # 5.47 K/uL (1.4-6.5); PLATELET COUNT 305 K/uL (130-400); RED CELL DISTRIBUTION WIDTH CV 13.5 % (11.5-14.5); RED CELL DISTRIBUTION WIDTH SD 39.2 fL (36.4-46.3)
[2017-09-30 15:10] LABS: ALKALINE PHOSPHATASE 71 U/L (45-117); LDL CHOLESTEROL CALCULATED 19 mg/dl; TOTAL PROTEIN 7.6 gm/dl (6.4-8.2); TRANSFERRIN 215 mg/dl (200-360)
[2017-10-01 06:56] LABS: HEMOGLOBIN A1C 11.7 % (4.5-5.6)
== END | disposition home or self-care (01) ==
LOC: C.LABSPEC 14:22
PROVIDERS: ATTEND Internal Medicine
DX: Z11.59 Encounter for screening for other viral diseases (principal); D64.9 Anemia, unspecified; I10 Essential (primary) hypertension; F32.9 Major depressive disorder, single episode, unspecified; E11.69 Type 2 diabetes mellitus with other specified complication; R23.1 Pallor

== ENCOUNTER → 2017-10-02 | Outpatient (CLI) | payer OTHER, MEDICARE ==
[2017-10-02 15:33] LABS: CREATININE RANDOM URINE 60.7 mg/dl
== END | disposition home or self-care (01) ==
LOC: C.LABSPEC 09-28 14:17
PROVIDERS: ATTEND Internal Medicine
DX: E11.65 Type 2 diabetes mellitus with hyperglycemia (principal)